=== PATIENT | male | born 1935 | race Caucasian/White ===

== ENCOUNTER 2017-05-01 14:58 | Outpatient (CLI) | payer MEDICARE, OTHER ==
--- NOTE | 2017-05-06 09:20 | Ultrasound Report ---
DATE OF SERVICE: 05/01/2017 RIGHT LEG ARTERIAL DUPLEX: 05/01/2017 CLINICAL INDICATION: Redness, numbness in foot. TECHNIQUE: Real-time sonographic vascular imaging was performed by the dean of admissions through the right lower extremity utilizing both color-flow and Doppler spectral analysis. Multiple security systems sales representative static images were saved for review. RIGHT SIDE SITE PSV WAVEFORM STEN TRANSPORT TECH 85 triphasic PSFA 45 triphasic MSFA 55 triphasic DSFA 84 triphasic PFA 45 triphasic POP 63 triphasic SANG 20 biphasic TAFFY PULLER 87 triphasic PER 55 biphasic DPA 15 biphasic FINDINGS RIGHT LEG: Waveforms are predominantly triphasic. There is no evidence of a focal hemodynamically significant arterial stenosis. IMPRESSION: NO EVIDENCE OF A FOCAL STENOSIS IN THE RIGHT LEG. TD: 05/02/2017 14:09 SANTIAGO
== END 2017-05-01 14:59 | disposition home or self-care (01) ==
LOC: DI 14:58
PROVIDERS: ATTEND Family Medicine
DX: R20.0 Anesthesia of skin (principal)

== ENCOUNTER 2017-06-23 15:15 | Outpatient (CLI) | payer MEDICARE, OTHER ==
--- NOTE | 2017-06-24 13:46 | DEXA Report ---
DEXA SCAN: 06/23/2017 CLINICAL INDICATION: High risk for osteoporosis. TECHNIQUE: Dual energy x-ray absorptiometry (DXA) was performed on a [employer] system. Regions measured are the AP spine, femoral neck, and, if needed, forearm. COMPARISON: None. In accordance with the International Society for Clinical Densitometry (ISCD) guidelines, data from previous exams may be reanalyzed using current recommendations and techniques. This is done to allow a more accurate basis for comparison with the current study. FINDINGS: The data for the lumbar spine is as follows: REGION BMD (g/cm/cm) T-SCORE Z-SCORE L1 1.558 3.3 4.4 L2 1.798 4.6 5.8 TOTAL L1-2 1.675 4.0 5.1 NOTE: All evaluable vertebrae are used for classification. The data for the hip is as follows: REGION BMD (g/cm/cm) T-SCORE Z-SCORE Neck 0.972 -0.8 1.1 TOTAL 0.991 -0.8 0.7 NOTE: The femoral neck or total proximal femur, whichever is lowest, is used for classification. IMPRESSION 1. THE WHO CLASSIFICATION BASED ON THE INTERNATIONAL REFERENCE STANDARD IS NORMAL. THE FRACTURE RISK IS NOT INCREASED. 2. L3 AND L4 WERE EXCLUDED, DUE TO PREVIOUS SPINAL FUSION HARDWARE. RECOMMENDATION: Patients with diagnosis of osteoporosis or osteopenia should have regular bone mineral density assessment. For those eligible for Medicare, routine testing is allowed once every 2 years. Testing frequency can be increased for patients who have rapidly progressing disease or for those who are receiving medical therapy to restore bone mass. COMMENT: World Health Organization (WHO) definitions for osteoporosis and osteopenia: NORMAL BMD: T-score at 1.0 or higher, fracture risk is low. OSTEOPENIA BMD: T-score between 1.0 and -2.5, fracture risk is increased. OSTEOPOROSIS BMD: T-score at 2.5 or lower, fracture risk high. National Osteoporosis Foundation recommends: 1. Obtain adequate dietary calcium (at least 1200 mg per day) and vitamin D (400 -800 international units per day). 2. Participate, as appropriate, in regular weightbearing and muscle- strengthening exercise. 3. Avoid tobacco use and reduce alcohol and caffeine intake. 4. For more detailed information see the website at www.NOF.org. MTDD
== END 2017-06-23 15:16 | disposition home or self-care (01) ==
LOC: DI 15:15
PROVIDERS: ATTEND Family Medicine
DX: M89.9 Disorder of bone, unspecified (principal); Z98.1 Arthrodesis status
CPT/HCPCS: 77080

== ENCOUNTER 2017-07-28 12:53 | Outpatient (CLI) | payer MEDICARE, OTHER ==
[2017-07-28 13:14] LABS: CREATININE 0.6 mg/dL (0.6-1.2)
== END 2017-07-28 12:54 | disposition home or self-care (01) ==
LOC: LAB 12:53
PROVIDERS: ATTEND Physical Medicine & Rehabilitation
DX: M48.062 Spinal stenosis, lumbar region with neurogenic claudication (principal)
CPT/HCPCS: 36415; 82565; 84520